=== PATIENT | female | born 1965 | race African-American/Black ===

== ENCOUNTER 2021-10-13 11:29 | Emergency (ER) | payer OTHER, SELFPAY ==
--- NOTE | 2021-10-13 11:37 | ED.DENTAL ---
HPI - Dental/Oral General Chief complaint: Dental/Oral Stated complaint: Toothache Time Seen by Provider: 10/13/21 11:38 Source: patient Mode of arrival: ambulatory Limitations: no limitations History of Present Illness HPI Narrative: Ms. Espino is a 55-year-old female patient presenting to the clinic today with complaints of dental pain x2 -3 days. She reports the pain is to her top left premolars and this is causing some pressure and pain into her ear and into her left sinuses. She denies any fever or chills. She does not currently have a dentist and will need to find one that will take her insurance. Rates pain 10 out of 10 currently Related Data Home Medications Medication Instructions Recorded Confirmed metformin 500 mg tablet,extended 2,000 mg PO DAILY 10/13/21 10/13/21 release 24 hr Allergies Allergy/AdvReac Type Severity Reaction Status Date / Time acetaminophen Allergy Unknown Rash Verified 10/13/21 11:31 hydrocodone Allergy Unknown Rash Verified 10/13/21 11:31 Contrast Media Allergy Unknown Rash Uncoded 10/13/21 11:31 Review of Systems Review of Systems: Pertinent positives per HPI. Patient denies any fever, chills, rash, headache, visual changes, dizziness, cough, runny nose, sore throat, shortness of breath, chest pain, palpitations, nausea, vomiting, diarrhea, constipation, abdominal pain, or any urinary issues. PMFSH Comments At the time of my signature, I reviewed and agree with the nursing past medical, surgical, social, and family history. There is no relevant family history pertinent to the patient complaint. Exam Narrative: General: Well-developed, well nourished, in no apparent distress Head: Normocephalic, atraumatic Eyes: Pupils equally round and reactive to light bilaterally, EOM intact, sclera and conjunctive clear, no discharge, lids normal Ears: TMs intact and clear, ear canals clear, no drainage, grossly hearing normal. Nose: Nares patent, no discharge, no inflammation, left maxillary tenderness. Mouth: Oropharynx without lesions or masses, poor dentition, MMM. Cavities with some swelling of the gingiva to #12, 13, and 14. Neck: Supple, trachea midline, no enlargement of anterior or posterior cervical nodes, no thyroid masses or goiter palpable. Cardio: Regular rate and rhythm, s1 and s2 normal, no murmur appreciated. Resp: Clear to auscultation bilaterally anteriorly and posteriorly, no rhonchi, rales, wheezing or rubs Course Course Emergency Course: Portions of this record may have been created with voice recognition software. Level of Care: Express Care Visit Vital Signs Vital signs: Vital Signs Temperature 37.0 C 10/13/21 11:39 Pulse Rate 98 10/13/21 11:39 Respiratory Rate 18 10/13/21 11:39 Blood Pressure 150/92 H 10/13/21 11:39 Pulse Oximetry 100 10/13/21 11:39 Oxygen Delivery Room Air 10/13/21 11:39 Temperature 37.0 C 10/13/21 11:39 Pulse Rate 98 10/13/21 11:39 Respiratory Rate 18 10/13/21 11:39 Blood Pressure 150/92 H 10/13/21 11:39 Pulse Oximetry 100 10/13/21 11:39 Oxygen Delivery Room Air 10/13/21 11:39 Vital signs reviewed MDM - Dental/Oral MDM Narrative Medical decision making narrative: At the time of visit patient is resting comfortably on the exam table. Discharge Plan Discharge Clinical Impression: Dental infection Patient Disposition: Home, Self-Care Condition: Stable Instructions: Antibiotic Form, Toothache (ED) Additional Instructions: Take amoxicillin as prescribed Toradol 60 mg IM given in the clinic today May take Tylenol/Motrin as needed for pain or fever Apply heat pack to the affected area to help alleviate some of the pain. Follow-up with your PCP in 3 to 5 days if symptoms persist Follow-up with the dentist as soon as possible Prescriptions: New amoxicillin 500 mg tablet 500 mg PO Q8H 10 Days Qty: 30 0RF No Action metformin 500 mg tablet extended release
[2021-10-13 11:39] VITALS: BP 150/92; PULSE 98; RESP 18; TEMP 37; O2SAT 100
[2021-10-13] MEDS: KETOROLAC (*BKC) 60 MG/2 ML VIAL IM (11:49)
== END 2021-10-13 12:19 | disposition home or self-care (01) ==
PROVIDERS: Emergency Provider Nurse Practitioner Family; PCP Family Medicine
DX: K04.7 Periapical abscess without sinus (principal); E11.9 Type 2 diabetes mellitus without complications
CPT/HCPCS: 96372; 99213; G0463; J1885

== ENCOUNTER 2022-01-16 14:25 | Emergency (ER) | payer OTHER, SELFPAY ==
--- NOTE | 2022-01-16 14:27 | ED.URI ---
HPI - URI/Sore Throat General Chief Complaint: Upper Respiratory Infection Stated Complaint: Sore Throat, Ears Irritation, Cough Time Seen by Provider: 01/16/22 14:56 Source: patient and RN notes reviewed Mode of arrival: ambulatory Limitations: no limitations History of Present Illness HPI Narrative: 56-year-old female presents concern for 5 day history of sore throat, nasal congestion, ear fullness, cough. Reports she has taken Tylenol, saltwater gargles and hot tea with little relief. She reports she initially had a fever that broke on Sunday. She denies current fever, body aches, chills MD elicited complaint: cough and sore throat Related Data Home Medications Medication Instructions Recorded Confirmed metformin 500 mg tablet,extended 2,000 mg PO DAILY 10/13/21 01/16/22 release 24 hr albuterol sulfate 90 mcg/actuation 2 puff inhalation Q4-5H PRN sob 01/16/22 01/16/22 aerosol inhaler Allergies Allergy/AdvReac Type Severity Reaction Status Date / Time acetaminophen Allergy Unknown Rash Verified 01/16/22 14:48 hydrocodone Allergy Unknown Rash Verified 01/16/22 14:48 Contrast Media Allergy Unknown Rash Uncoded 01/16/22 14:48 Review of Systems Review of Systems: CONSTITUTIONAL: Reports malaise. GI chills, sweats, or fever. EYES: Denies visual changes, redness, or discharge. ENT: Reports rhinorrhea, congestion, throat, ear fullness. Denies sinus pain, otalgia CARDIOVASCULAR: Denies chest pain, palpitations, or edema. RESPIRATORY: Reports cough. Denies dyspnea. GASTROINTESTINAL: Denies abdominal pain, nausea, vomiting, diarrhea SKIN: Denies rash or itching. MUSCULOSKELETAL: Denies myalgia. NEUROLOGIC: Denies headache. All systems reviewed & are unremarkable except as noted in HPI and below PMFSH Comments At time of signature, agree with nursing past medical, surgical, social and family history. There is no relevant family history pertinent to the presenting complaint Exam Narrative: GENERAL: Well-appearing, well-nourished, and in no acute distress. HEAD: Normocephalic EYES: PERRLA, conjunctivae clear ENT: Nares clear, clear discharge. Mucous membranes moist. TM pearly mccracken with sharp light reflex bilaterally; no tragal tenderness. Oropharynx not erythematous without lesions. Tonsils not enlarged and without exudate, no drooling, no hoarseness, no trismus, uvula midline. NECK: Supple. No lymphadenopathy CHEST: Clear to auscultation, breath sounds equal. No wheezing, rhonchi, rales, or stridor. No respiratory distress, speaks in full sentences. HEART: Regular rate and rhythm. No murmur heard. SKIN: Warm, dry, no rash. NEURO: Alert and oriented x3. PSYCH: Normal mood and affect Course Course Emergency Course: Patient is aware of diagnosis, understands and agrees to treatment plan. Anticipatory guidance given. Patient agrees to follow-up as directed and is aware of reasons to seek care at the emergency department. Portions of this record may have been created with voice recognition software Level of Care: Express Care Visit Vital Signs Vital signs: Reviewed. MDM - URI/Sore Throat MDM Narrative Medical decision making narrative: Differential diagnosis considered: Navarrete virus, strep pharyngitis, allergic rhinitis, upper respiratory tract infection, sinusitis, rhinosinusitis, nasopharyngitis. viral pharyngitis, otitis media, otitis externa, pneumonia, bronchitis, viral cough syndrome, viral syndrome, and influenza. Exam findings show no acute concerns or changes; patient is non-toxic appearing and is in no distress. Patient is appropriate for outpatient treatment and follow-up. Lab Data Attestation: I reviewed the patient's lab results. Critical Care Time Critical Care Time Critical Care Time: No Discharge Plan Discharge Clinical Impression: Upper respiratory infection with cough and congestion Patient Disposition: Home, Self-Care Condition: Stable Instructions: Upper Respiratory Infe
[2022-01-16 14:37] VITALS: BP 145/84; PULSE 83; RESP 16; TEMP 36.6; O2SAT 99
== END 2022-01-16 15:22 | disposition home or self-care (01) ==
PROVIDERS: Emergency Provider Nurse Practitioner; PCP Family Medicine
DX: J06.9 Acute upper respiratory infection, unspecified (principal); R05.9 Cough, unspecified; J45.909 Unspecified asthma, uncomplicated; E11.9 Type 2 diabetes mellitus without complications
CPT/HCPCS: 87081; 87880; 99213; G0463

== ENCOUNTER 2023-02-07 10:22 | Emergency (ER) | payer OTHER, SELFPAY ==
[2023-02-07 10:32] VITALS: BP 135/91; PULSE 81; RESP 16; TEMP 37; O2SAT 99
--- NOTE | 2023-02-07 10:33 | ED.URI ---
HPI - URI/Sore Throat General Chief Complaint: Shortness of Breath/Dyspnea Stated Complaint: breathing difficulty Time Seen by Provider: 02/07/23 10:33 Source: patient Mode of arrival: ambulatory Limitations: no limitations History of Present Illness HPI Narrative: 57 y/o female with hx asthma presented for c/o cough and tightness with taking deep breaths. Reports she has been having these symptoms over the past few weeks due to the change in seasons, per usual. However she was exposed to cleaning chemicals last night at work, which exacerbated her symptoms. States she slept with HOB elevated. Reports the cough is worse at night. Pt stated she could not be evaluated after work last night because she left work too late and everything was closed. Using inhaler more frequently over the past few weeks, last used 0900. Denies wheezing, n/v/d/f/c. Related Data Home Medications Medication Instructions Recorded Confirmed metformin 500 mg tablet,extended 2,000 mg PO DAILY 10/13/21 02/07/23 release 24 hr albuterol sulfate 90 mcg/actuation 2 puff inhalation Q4-5H PRN sob 01/16/22 02/07/23 aerosol inhaler rosuvastatin 5 mg tablet 5 mg PO DIRECTED 02/07/23 02/07/23 Allergies Allergy/AdvReac Type Severity Reaction Status Date / Time acetaminophen Allergy Unknown Rash Verified 02/07/23 10:35 hydrocodone Allergy Unknown Rash Verified 02/07/23 10:35 Contrast Media Allergy Unknown Rash Uncoded 01/16/22 14:48 Review of Systems Review of Systems: CONSTITUTIONAL: Denies body aches, fever, chills, or sweats. EYES: Denies visual changes, redness, or discharge. ENT: Denies rhinorrhea, congestion, sore throat, or otalgia. CARDIOVASCULAR: Denies chest pain, palpitations, or edema. RESPIRATORY: Reports cough, denies sob, wheezing. GASTROINTESTINAL: Denies abdominal pain, nausea, vomiting, or diarrhea. GENITOURINARY: Denies dysuria or hematuria. SKIN: Denies rash, itching, or wounds. MUSCULOSKELETAL: Denies back pain, joint pain, or myalgia. NEUROLOGIC: Denies headache, numbness, tingling, or weakness. All systems reviewed & are unremarkable except as noted in HPI and below PMFSH Past Medical History Medical History (Updated 02/07/23 @ 11:24 by NATALIA Coronado Asthma Diabetes Comments At time of signature, I have reviewed and agree with nursing past medical, surgical, social and family history unless otherwise noted. Please see nursing chart for further information. There is no relevant family history pertinent to the presenting complaint Exam Narrative: GENERAL: Well-appearing, in no acute distress. EYES: EOMI. No redness or drainage. Conjunctivae normal. ENT: Mucous membranes pink and moist. No rhinorrhea. TMs normal bilaterally. Throat normal. Uvula midline. NECK: Normal AROM. Supple. CHEST: No respiratory distress. Lungs clear to all [place]. Appears to be hesitant with taking deep breath. Speaks full sentences. HEART: Regular rate and rhythm. No murmur appreciated. ABDOMEN: Soft, nontender, nondistended, normal active bowel sounds. EXTREMITIES: Normal range of motion. No edema. SKIN: Warm, dry, no rash. Capillary refill normal. Normal skin turgor. NEURO: Alert and oriented x3. Gait steady. PSYCH: Normal affect. Course Course Emergency Course: Patient is aware of diagnosis, understands and agrees to treatment plan. Anticipatory guidance given. Patient agrees to follow-up as directed and is aware of reasons to seek care at the emergency department. Portions of this record may have been created with voice recognition software Level of Care: Express Care Visit Vital Signs Vital signs: Vital Signs Temperature 98.6 F 02/07/23 10:32 Pulse Rate 81 02/07/23 10:32 Respiratory Rate 16 02/07/23 10:32 Blood Pressure 135/91 H 02/07/23 10:32 Pulse Oximetry 99 02/07/23 10:32 Oxygen Delivery Room Air 02/07/23 10:32 Temperature 98.6 F 02/07/23 10:32 Pulse Rate 81 1
[2023-02-07] MEDS: ALBUTEROL SULFATE NEB 2.5 MG/3 ML INH INHALATION (10:47)
== END 2023-02-07 11:16 | disposition home or self-care (01) ==
PROVIDERS: Emergency Provider Nurse Practitioner Family; PCP Family Medicine
DX: J45.901 Unspecified asthma with (acute) exacerbation (principal); E11.9 Type 2 diabetes mellitus without complications; Z79.84 Long term (current) use of oral hypoglycemic drugs
CPT/HCPCS: 94640; 99213; G0463